=== PATIENT | male | born 1970 | race Two or more races ===

== ENCOUNTER 2017-12-24 09:50 | Emergency (ER) | payer BC, OTHER ==
[~2017-12-24] VITALS: Ht 170.2 cm; Wt 82.6 kg
[2017-12-24 10:12] VITALS: BP 130/78
== END 2017-12-24 10:58 | disposition home or self-care (01) ==
LOC: ER 09:53
DX: M54.5 Low back pain (principal); F17.210 Nicotine dependence, cigarettes, uncomplicated; Z04.1 Encounter for examination and observation following transport accident; Z86.73 Personal history of transient ischemic attack (TIA), and cerebral infarction without residual deficits; V49.49XA Driver injured in collision with other motor vehicles in traffic accident, initial encounter; Y93.89 Activity, other specified; Y99.8 Other external cause status; Y92.410 Unspecified street and highway as the place of occurrence of the external cause
CPT/HCPCS: 72100